=== PATIENT | female | born 1990 | race Caucasian/White ===

== ENCOUNTER 2023-12-11 07:06 | Emergency (ER) | payer MEDICAID, SELFPAY ==
--- NOTE | ~2023-12-11 | CT_ITS ---
EXAMINATION: CT abdomen pelvis w con DATE: 12/11/2023 08:20 INDICATION: Right lower quadrant pain for 3 days TECHNIQUE: Computed tomography (CT) of the abdomen and pelvis was performed with 100 cc Omnipaque 350 intravenous contrast. The dose-length product was 737.83 mGy-cm. Automated exposure control and iter ative reconstruction technique were employed. COMPARISON: CT dated 05/23/2017. FINDINGS: Lung bases unremarkable. Heart size normal. Small right pleural effusion. No significant pe ricardial effusion. Status post cholecystectomy. There are surgical changes consistent with gastric b ypass surgery. The liver, spleen, pancreas, adrenal glands and right kidney are unremarkable. Small s ubcentimeter hypodensities of the left kidney, most likely benign cysts. Nonobstructive bowel gas pat tern. Normal appendix. There is a 2.8 cm right ovarian cyst with small amount of periadnexal free flu id. No free air. No acute osseous abnormality. IMPRESSION: 1. Right ovarian cyst measuring 2.8 cm with trace free fluid. 2: Small right pleural effusion. Reviewed, dictated and finalized at location B.
--- NOTE | ~2023-12-11 | US_ITS ---
EXAMINATION: US pelvic complete INDICATION: Right lower quadrant pain Comparison:CT dated 12/11/2023 TECHNIQUE: Multiple transabdominal sonographic images of the pelvis performed. FINDINGS: The uterus measures 9.7 x 4.4 cm. The endometrial complex measures 7 mm. The right ovary measures 4.2 x 2.7 x 3.4 cm and the left ovary measures 3.9 x 2.2 x 2 cm. There is a simple right ovarian cyst measuring 2.8 x 1.8 x 2.1 cm. There are small follicles in each ovary. Norm al doppler signal in both ovaries. There is no free fluid in the pelvis. There are no abnormal masses seen on either side. IMPRESSION: 1. Right ovarian cyst measuring 2.8 cm. No evidence for ovarian torsion. Reviewed, dictated and finalized at location B.
[2023-12-11 07:08] VITALS: BP 155/95; PULSE 83; RESP 16; TEMP 36.4; O2SAT 100
[2023-12-11 07:29] LABS: BEDSIDEPREGUCG Negative
[2023-12-11 07:35] LABS: Basophils Absolute Auto 0.1 K/mm3 (0.0-0.1); Basophils Percent Auto 0.6 % (0.2-1.2); Eosinophils Absolute Auto 0.1 K/mm3 (0-0.3); Eosinophils Percent Auto 1.5 % (0-4.4); Hematocrit 41.4 % (37.0-47.0); Hemoglobin 13.7 g/dL (12.0-15.0); Immature Granulocyte Absolute 0.02 K/mm3 (0.00-0.031); Immature Granulocyte Percent A 0.2 % (0-0.5); Lymphocytes Absolute Auto 3.79 K/mm3 (0.9-3.2); Lymphocytes Percent Auto 45.1 % (18.3-44.2); Mean Corpuscular HGB Conc 33.1 g/dl (32-36); Mean Corpuscular Hemoglobin 29.5 pg (26-34); Mean Platelet Volume 10.3 fl (7.4-10.4); Monocytes Absolute Auto 0.5 K/mm3 (0.1-0.6); Monocytes Percent Auto 5.5 % (2.6-8.5); Neutrophils Percent Auto 47.1 % (45.5-73.1); Platelet Count Result 240 k/mm3 (150-375); Red Blood Count 4.65 M/mm3 (4.2-5.4); Red Cell Distribution Width 13.1 % (11.5-14.5); White Blood Count 8.4 K/mm3 (4.5-10.0)
[2023-12-11 07:42] LABS: Appearance Urine Clear (Clear); Bacteria Urine None Seen /hpf; Bilirubin Urine Negative (Negative); Blood Urine Negative (Negative); Color Urine Yellow (Yellow); Glucose Urine UA Negative (Negative); Ketones Urine Negative (Negative); Leukocyte Esterase Ur Trace LEU/UL (Negative); Nitrate Urine Negative (Negative); Non Pathogenic Casts 0-2; Protein Urine Negative (Negative); RBC Urine 0-2 /hpf (0-2); Specific Grav Ur 1.022 (1.001-1.035); Squamous Epithelial Cell Urine None Seen /hpf (Few); WBC Urine 0-5 /hpf (0-3)
[2023-12-11 07:44] LABS: Add Urine Microscopic? YES
[2023-12-11 07:46] LABS: Alanine Aminotransferase 14 U/L (6-35); Albumin Level 4.4 g/dL (3.5-5.1); Alkaline Phosphatase 76 U/L (38-126); Anion Gap 11 mmol/L (4-12); Aspartate Amino Transferase 18 U/L (14-36); Bilirubin,Total 0.4 mg/dL (0.2-1.3); Blood Urea Nitrogen 13 mg/dL (7-17); Calcium 8.9 mg/dL (8.4-10.2); Carbon Dioxide 24 mmol/L (22-30); Chloride 104 mmol/L (98-107); Estimated CRCL calculation 133 ml/min; Estimated Glomerular Filt Rate > 60; Glucose 81 mg/dL (65-110); Lipase 99 U/L (23-300); Potassium 3.3 mmol/L (3.4-5.0); Sodium 139 mmol/L (137-145)
--- NOTE | 2023-12-11 08:04 | ED.ABDPAIN ---
HPI - Abdominal Pain General Chief Complaint: Abdominal Pain Stated Complaint: abd pain Time Seen by Provider: 12/11/23 07:43 History of Present Illness HPI narrative: 33-year-old female presenting to the emergency department for evaluation for right-sided abdominal pain that started yesterday. Patient does describe associated nausea. Patient has no prior history of kidney stones, a prior history of ovarian cyst. Patient does have prior history of cholecystectomy. Related Data Allergies Allergy/AdvReac Type Severity Reaction Status Date / Time amoxicillin Allergy Unknown Other Verified 12/11/23 07:31 Review of Systems Review of Systems: All systems reviewed & are unremarkable except as noted in HPI and below Exam Narrative: APPEARANCE: Well appearing, no pain, no distress, well-nourished. HEAD: normocephalic, atraumatic. EYES: PERRLA/EOMI, conjunctivae clear. NOSE: Normal no drainage EARS:TMS clear with good light reflex. THROAT: Pharynx clear, no exudate. NECK: Supple. No adenopathy, no masses. RESPIRATORY: Airway patent, respirations nonlabored. Clear to auscultation bilaterally, no rales, rhonchi, wheezing. CARDIOVASCULAR: Regular rate and rhythm without murmurs rubs or gallops. ABDOMINAL: Right lower quadrant tenderness to palpation MUSCULOSKELETAL: Moves all extremities. Strength/ROM intact, No edema, No calf tenderness. NEURO: Alert. Cranial nerves II through XII intact. Grossly intact SKIN: Warm, dry. Normal Color Course Course Emergency Course: Patient was up to the results of the workup showing ovarian cyst. Patient was encouraged to have close follow-up with [facility] Vital Signs Vital signs: Vital Signs Temperature 97.5 F L 12/11/23 07:08 Pulse Rate 83 12/11/23 07:08 Respiratory Rate 16 12/11/23 07:08 Blood Pressure 155/95 H 12/11/23 07:08 Pulse Oximetry 100 12/11/23 07:08 Oxygen Delivery Room Air 12/11/23 07:08 Temperature 98.5 F 12/11/23 09:44 Pulse Rate 70 12/11/23 09:44 Respiratory Rate 21 H 12/11/23 09:44 Blood Pressure 151/103 H 12/11/23 09:44 Pulse Oximetry 100 12/11/23 09:44 Oxygen Delivery Room Air 12/11/23 07:08 MDM - Abdominal Pain MDM Narrative Medical decision making narrative: 33-year-old female presented emergency department for evaluation for right-sided abdominal pain. Patient was treated with IV medications for pain control and for nausea. Patient is afebrile with no leukocytosis and a stable hemoglobin of 13.7. No significant abnormalities on the patient's CMP with normal AST ALT alk-phos T bili and lipase. UA had no major signs of infection. CT scan was ordered due to the patient having right-sided abdominal pain. CT scan did show an ovarian cyst. Ultrasound was ordered to rule out for ovarian torsion. Patient was updated on results of the workup. Patient did feel improved with treatment. Patient was advised on the treatment plan for home and on the ports have a close follow-up with [facility]. Patient was also educated on reasons to return to the emergency department. Differential Diagnosis Differential diagnosis: Likely abdominal pain, acute appendicitis, calculus of kidney, constipation, diverticulitis, gastroenteritis, pancreatitis and small bowel obstruction Lab Data Attestation: I reviewed the patient's lab results. 12/11/23 07:23 12/11/23 07:23 Labs: Lab Results 12/11/23 12/11/23 Range/Units 07:23 07:27 WBC 8.4 (4.5-10.0) K/mm3 RBC 4.65 (4.2-5.4) M/mm3 Hgb 13.7 (12.0-15.0) g/dL Hct 41.4 (37.0-47.0) % MCV 89.0 (80-100) fl MCH 29.5 (26-34) pg MCHC 33.1 (32-36) g/dl RDW 13.1 (11.5-14.5) % Plt Count 240 (150-375) k/mm3 MPV 10.3 (7.4-10.4) fl Immature Gran % (Auto) 0.2 (0-0.5) % Neut % (Auto) 47.1 (45.5-73.1) % Lymph % (Auto) 45.1 H (18.3-44.2) % [place] % (Auto) 5.5 (2.6-8.5) % Eos % (Auto) 1.5 (0-4.4) % Baso % (Auto) 0.6 (
[2023-12-11] MEDS: ONDANSETRON INJ 4 MG/2 ML VIAL IV PUSH (08:28)
[2023-12-11] MEDS: HYDROmorphone HCL INJ (*CRX) 1 MG/ML SYR 0.5 MG IV PUSH (08:30)
[2023-12-11 08:32] VITALS: BP 158/101; PULSE 87; RESP 16; O2SAT 100
[2023-12-11 09:36] VITALS: BP 157/113; PULSE 72; RESP 12; O2SAT 100
[2023-12-11 09:44] VITALS: BP 151/103; PULSE 70; RESP 21; TEMP 36.9; O2SAT 100
== END 2023-12-11 09:46 | disposition home or self-care (01) ==
PROVIDERS: Emergency Provider Emergency Medicine
DX: N83.201 Unspecified ovarian cyst, right side (principal); R10.9 Unspecified abdominal pain; Z90.49 Acquired absence of other specified parts of digestive tract
CPT/HCPCS: 36415; 74177; 76830; 76856; 80053; 81001; 81025; 83690; 85025; 96374; 96375; 99284; J1170; J2405; Q9967